=== PATIENT | female | born 1950 | race Two or more races ===

== ENCOUNTER 2023-10-04 09:42 | Outpatient (CLI) | payer OTHER | END 2023-10-04 09:47 | disposition home or self-care (01) | LOC: NUCLEAR 09:42 | PROVIDERS: ATTEND Internal Medicine | DX: I11.9 Hypertensive heart disease without heart failure (principal); Z95.1 Presence of aortocoronary bypass graft; Z95.0 Presence of cardiac pacemaker ==

== ENCOUNTER 2024-03-19 07:08 | Outpatient (CLI) | payer OTHER | END 2024-03-19 07:09 | disposition home or self-care (01) | LOC: NUCLEAR 07:08 | PROVIDERS: ATTEND Internal Medicine | DX: I20.1 Angina pectoris with documented spasm (principal); I50.1 Left ventricular failure, unspecified | CPT/HCPCS: 78452; 93017; A9500; J0153 ==